=== PATIENT | female | born 1955 | race Caucasian/White ===

== ENCOUNTER 2022-06-30 13:54 | Inpatient (IN) | payer MEDICARE ==
[2022-06-30 14:42] LABS: #Monocytes 0.3 10x3/uL (0.0-1.1); %Basophils 0.2 % (0.0-2.0); %Eosinophils 0.1 % (0.0-6.0); %Monocytes 1.6 % (0.0-10.0); %Neutrophils 92.3 % (40.0-75.0); Hemoglobin 13.4 g/dL (12.0-15.5); Mean Corpuscular HGB CONC 33.5 g/dL (32.0-36.0); Mean Corpuscular Hemoglobin 29.1 pg (27.0-33.0); Platelet Count 646 10x3/uL (150-450); RBC Distribution Width 13.1 % (11.5-14.5); White Blood Cell (WBC) Count 17.4 10x3/uL (3.5-10.5)
[2022-06-30 14:55] LABS: ALT (SGPT) 23 U/L (8-55); AST (SGOT) 20 U/L (5-34); Albumin 3.7 g/dL (3.4-4.8); Alkaline Phosphatase 78 U/L (40-110); Anion Gap 23 mmol/L (10-20); BUN (Urea Nitrogen) 78 mg/dL (9.8-20.1); Bilirubin, Total 0.3 mg/dL (0.2-1.2); Calc. Creatinine Clearance 0 mL/min (70-130); Calcium 10.5 mg/dL (7.8-10.44); Carbon Dioxide 16 mmol/L (23-31); Chloride 94 mmol/L (98-107); Estimated GFR 16; Glucose 166 mg/dL (80-115); Potassium 3.2 mmol/L (3.5-5.1); Protein, Total 7.7 g/dL (5.8-8.1); Sodium 130 mmol/L (136-145)
[2022-06-30 16:09] LABS: Magnesium 2.2 mg/dL (1.6-2.6)
[2022-06-30] MEDS ORDERED: Famotidine/PF 20 mg/2ml Vial ONE (16:34)
[2022-06-30 16:58] LABS: Actual Bicarbonate (HCO3v) 17 mEq/L (22-28); Base Excess -7.7 mEq/L (-2 - +2); Calcium, Ionized (venous) 1.18 mmol/L (1.16-1.32); Chloride (VBG) 93 mmol/L (98-106); Hemoglobin (Hb) 14.3 g/dL (11.7-16.1); Potassium (VBG) 3.19 mmol/L (3.70-5.30); Puncture Site Other Site; RapidComm Collect By CBN; Sodium 126.2 mmol/L (133-146); pH (venous) 7.34 (7.32-7.43)
[2022-06-30] MEDS ORDERED: Cefepime 2 GM VIAL ONE (17:23)
[2022-06-30] MEDS ORDERED: Mag-Al Plus 1200 MG/1200 MG/120 MG/30 ML UDCUP ONE (17:23)
[2022-06-30] MEDS ORDERED: Lidocaine Viscous Sol 2% 15 ml UD Cup ONE (17:23)
[2022-06-30 17:29] LABS: Bilirubin Neg (Negative); Blood, Urine 250 (Negative); Clarity Cloudy (Clear); Glucose, Urine (Dipstick) Normal (Negative); Ketone, Urine 5 mg/dL (Negative); Leukocyte 500 (Negative); Nitrite Negative (Negative); Protein, Urine (Dipstick) 30 mg/dl (Neg-Trace); Urobilinogen Normal mg/dL (Less than 2)
[2022-06-30 17:38] LABS: RBC/HPF Greater than 50 HPF (0-3); WBC/HPF Greater than 50 HPF (0-3)
[2022-06-30 17:39] LABS: Bacteria/HPF 4+ HPF (None Seen)
[2022-06-30] MEDS ORDERED: HumaLOG 300 UNITS/3 ML VIAL SC PRN ×2 (18:31)
[2022-06-30] MEDS ORDERED: Dextrose 50% Abboject 50 ML SYRINGE SLOW IVP PRN (18:31)
[2022-06-30] MEDS ORDERED: Dextrose 5% in Water 1,000 ML IV PRN (18:31)
[2022-06-30] MEDS ORDERED: Ondansetron PF 4 MG/2 ML Vial IVP PRN (18:37)
[2022-06-30] MEDS ORDERED: Senokot S 8.6-50 MG TAB PO PRN (18:37)
[2022-06-30] MEDS ORDERED: Ondansetron ODT 4 MG TAB PO PRN (18:37)
[2022-06-30] MEDS ORDERED: Vancomycin 1.5 GRAM/300 ML BAG 1.5 GM in Premix Bag 1 BAG IVPB SCH (19:00)
[2022-06-30] MEDS ORDERED: Potassium Chloride 20 MEQ TAB PO SCH (20:45)
[2022-06-30 22:24] VITALS: BMI 22.8
[2022-06-30] MEDS ORDERED: Sodium Bicarbonate 150 MEQ in Sodium Chloride 0.45% 1,000 ML IV ONE (23:00)
[2022-06-30] MEDS ORDERED: Vancomycin HCl 1 GM in Sodium Chloride 0.9% 250 ML 250 ML IVPB SCH (23:00)
[2022-06-30] MEDS: Sodium Chloride 0.9% 1,000 ML IV SCH (23:01)
[2022-06-30] MEDS: Tacrolimus 0.5 MG CAP PO SCH (23:28)
[2022-06-30] MEDS: Mycophenolate ER 180 MG TAB PO SCH (23:29)
[2022-06-30] MEDS: Heparin 5,000 UNITS/ML VIAL SC SCH (23:41)
[2022-07-01 05:24] LABS: #Monocytes 0.6 10x3/uL (0.0-1.1); %Basophils 0.1 % (0.0-2.0); %Lymphocytes 7.5 % (18.0-47.0); %Monocytes 4.5 % (0.0-10.0); %Neutrophils 86.4 % (40.0-75.0); Anion Gap 22 mmol/L (10-20); BUN (Urea Nitrogen) 77 mg/dL (9.8-20.1); Calc. Creatinine Clearance 15 mL/min (70-130); Calcium 9.2 mg/dL (7.8-10.44); Carbon Dioxide 15 mmol/L (23-31); Chloride 98 mmol/L (98-107); Estimated GFR 17; Glucose 203 mg/dL (80-115); Hemoglobin 11.4 g/dL (12.0-15.5); Mean Corpuscular HGB CONC 33.8 g/dL (32.0-36.0); Mean Corpuscular Hemoglobin 29.3 pg (27.0-33.0); Mean Corpuscular Volume 86.6 fl (81.6-98.3); Platelet Count 415 10x3/uL (150-450); Potassium 4.5 mmol/L (3.5-5.1); RBC Distribution Width 13.2 % (11.5-14.5); Red Blood Cell (RBC) Count 3.89 10x6/uL (3.90-5.03); Sodium 130 mmol/L (136-145); White Blood Cell (WBC) Count 13.9 10x3/uL (3.5-10.5)
[2022-07-01] MEDS: Levothyroxine Sodium 50 MCG TAB PO SCH (06:55)
[2022-07-01] MEDS ORDERED: Vancomycin DOSE BY LEVEL IVPB PRN (07:26)
[2022-07-01] MEDS: Aspirin Chewable 81 MG TAB PO SCH (10:51)
[2022-07-01] MEDS: predniSONE 5 MG TAB PO SCH (10:51)
[2022-07-01] MEDS: Heparin 5,000 UNITS/ML VIAL SC SCH ×2 (10:52→22:12)
[2022-07-01] MEDS: Tacrolimus 0.5 MG CAP PO SCH ×2 (10:52→22:10)
[2022-07-01] MEDS: Mycophenolate ER 180 MG TAB PO SCH ×2 (10:52→22:11)
[2022-07-01] MEDS: Atorvastatin Calcium 20 MG TAB PO SCH (10:53)
[2022-07-01] MEDS: Sodium Chloride 0.9% 1,000 ML IV SCH (14:20)
[2022-07-01] MEDS: Cefepime 1 GM in Sodium Chloride 0.9% 100 ML IVPB SCH (17:11)
[2022-07-01] MEDS ORDERED: Alendronate Sodium 70 mg Tablet PO SCH (17:15)
[2022-07-01] MEDS: Famotidine 20 MG TAB PO SCH (22:11)
[2022-07-01 23:00] LABS: Vancomycin, Random Less than 1.1 ug/mL (See Comment)
[2022-07-02] MEDS: NIFEdipine XL 30 MG TAB PO SCH ×3 (04:02→21:11)
[2022-07-02] MEDS: Levothyroxine Sodium 50 MCG TAB PO SCH (05:02)
[2022-07-02] MEDS: Sodium Chloride 0.9% 1,000 ML IV SCH ×3 (05:02→17:09)
[2022-07-02 06:15] LABS: #Monocytes 0.4 10x3/uL (0.0-1.1); #Neutrophils 6.4 10x3/uL (1.5-8.4); %Basophils 0.1 % (0.0-2.0); %Eosinophils 0.1 % (0.0-6.0); %Lymphocytes 12.2 % (18.0-47.0); %Monocytes 4.8 % (0.0-10.0); %Neutrophils 81.9 % (40.0-75.0); Hemoglobin 10.1 g/dL (12.0-15.5); Mean Corpuscular HGB CONC 33.6 g/dL (32.0-36.0); Mean Corpuscular Hemoglobin 29.3 pg (27.0-33.0); Mean Corpuscular Volume 87.2 fl (81.6-98.3); Platelet Count 312 10x3/uL (150-450); RBC Distribution Width 13.3 % (11.5-14.5); Red Blood Cell (RBC) Count 3.45 10x6/uL (3.90-5.03); White Blood Cell (WBC) Count 7.8 10x3/uL (3.5-10.5)
[2022-07-02 06:29] LABS: Anion Gap 15 mmol/L (10-20); BUN (Urea Nitrogen) 57 mg/dL (9.8-20.1); Calc. Creatinine Clearance 20 mL/min (70-130); Calcium 8.7 mg/dL (7.8-10.44); Carbon Dioxide 21 mmol/L (23-31); Chloride 102 mmol/L (98-107); Estimated GFR 25; Glucose 153 mg/dL (80-115); Potassium 3.9 mmol/L (3.5-5.1); Sodium 134 mmol/L (136-145)
[2022-07-02] MEDS ORDERED: Non-Formulary Medication 1 EACH (Cranberry [Cranberry] 500 MG Capsule) PO SCH (09:00)
[2022-07-02] MEDS: Tacrolimus 0.5 MG CAP PO SCH ×2 (09:53→21:10)
[2022-07-02] MEDS: Aspirin Chewable 81 MG TAB PO SCH (09:53)
[2022-07-02] MEDS: Clopidogrel Bisulfate 75 MG TAB PO SCH (09:53)
[2022-07-02] MEDS: Atorvastatin Calcium 20 MG TAB PO SCH (09:54)
[2022-07-02] MEDS: Mycophenolate ER 180 MG TAB PO SCH ×2 (09:54→21:10)
[2022-07-02] MEDS: Cholecalciferol 1,000 UNITS (25 MCG) TAB PO SCH (09:54)
[2022-07-02] MEDS: predniSONE 5 MG TAB PO SCH (09:54)
[2022-07-02] MEDS: Heparin 5,000 UNITS/ML VIAL SC SCH ×2 (09:54→21:41)
[2022-07-02] MEDS: Escitalopram Oxalate 10 mg Tablet PO SCH (09:55)
[2022-07-02] MEDS: Acetaminophen 325 MG TAB PO PRN ×2 (11:40→19:56)
[2022-07-02] MEDS: Cefepime 1 GM in Sodium Chloride 0.9% 100 ML IVPB SCH (17:08)
[2022-07-02] MEDS: Famotidine 20 MG TAB PO SCH (21:11)
[2022-07-02] MEDS: HYDROcodone/Acetaminophen 5/325 mg Tablet PO PRN (23:40)
[2022-07-03] MEDS: Sodium Chloride 0.9% 1,000 ML IV SCH ×2 (04:25→12:58)
[2022-07-03 06:07] LABS: #Monocytes 0.4 10x3/uL (0.0-1.1); #Neutrophils 5.3 10x3/uL (1.5-8.4); %Basophils 0.2 % (0.0-2.0); %Eosinophils 0.3 % (0.0-6.0); %Lymphocytes 13.7 % (18.0-47.0); %Monocytes 5.3 % (0.0-10.0); %Neutrophils 79.4 % (40.0-75.0); Mean Corpuscular HGB CONC 33.7 g/dL (32.0-36.0); Mean Corpuscular Hemoglobin 29.9 pg (27.0-33.0); Mean Corpuscular Volume 88.7 fl (81.6-98.3); Mean Platelet Volume 10.2 fl (7.4-10.4); Platelet Count 301 10x3/uL (150-450); RBC Distribution Width 13.1 % (11.5-14.5); Red Blood Cell (RBC) Count 3.35 10x6/uL (3.90-5.03); White Blood Cell (WBC) Count 6.7 10x3/uL (3.5-10.5)
[2022-07-03 06:21] LABS: ALT (SGPT) 13 U/L (8-55); AST (SGOT) 16 U/L (5-34); Albumin 2.8 g/dL (3.4-4.8); Alkaline Phosphatase 56 U/L (40-110); Anion Gap 12 mmol/L (10-20); BUN (Urea Nitrogen) 38 mg/dL (9.8-20.1); Bilirubin, Total 0.3 mg/dL (0.2-1.2); Calc. Creatinine Clearance 32 mL/min (70-130); Calcium 8.3 mg/dL (7.8-10.44); Carbon Dioxide 19 mmol/L (23-31); Chloride 105 mmol/L (98-107); Estimated GFR 42; Globulin 2.6 g/dL (2.4-3.5); Glucose 225 mg/dL (80-115); Potassium 3.4 mmol/L (3.5-5.1); Protein, Total 5.4 g/dL (5.8-8.1); Sodium 133 mmol/L (136-145)
[2022-07-03] MEDS: Levothyroxine Sodium 50 MCG TAB PO SCH (06:38)
[2022-07-03] MEDS: HYDROcodone/Acetaminophen 5/325 mg Tablet PO PRN (09:43)
[2022-07-03] MEDS: Cholecalciferol 1,000 UNITS (25 MCG) TAB PO SCH ×2 (09:44→09:46)
[2022-07-03] MEDS: Tacrolimus 0.5 MG CAP PO SCH (09:45)
[2022-07-03] MEDS: Escitalopram Oxalate 10 mg Tablet PO SCH (09:45)
[2022-07-03] MEDS: Aspirin Chewable 81 MG TAB PO SCH (09:45)
[2022-07-03] MEDS: NIFEdipine XL 30 MG TAB PO SCH (09:47)
[2022-07-03] MEDS: Clopidogrel Bisulfate 75 MG TAB PO SCH (09:47)
[2022-07-03] MEDS: Atorvastatin Calcium 20 MG TAB PO SCH (09:47)
[2022-07-03] MEDS: Heparin 5,000 UNITS/ML VIAL SC SCH (12:25)
[2022-07-03] MEDS: predniSONE 5 MG TAB PO SCH (12:43)
[2022-07-03] MEDS: Mycophenolate ER 180 MG TAB PO SCH (12:44)
[2022-07-03 15:57] VITALS: BP 130/62; TEMP 98.2
== END 2022-07-03 15:00 | disposition home or self-care (01) | DRG 698 ==
LOC: CSHERS 13:54 → CSHTELE 17:46
PROVIDERS: ADMIT Internal Medicine; ATTEND Hospitalist
DX: T86.19 Other complication of kidney transplant (principal); A41.9 Sepsis, unspecified organism; N17.9 Acute kidney failure, unspecified; E87.1 Hypo-osmolality and hyponatremia; E87.20 Acidosis, unspecified; N10 Acute pyelonephritis; N30.80 Other cystitis without hematuria; Z94.0 Kidney transplant status; D75.839 Thrombocytosis, unspecified; E87.6 Hypokalemia; E11.9 Type 2 diabetes mellitus without complications; I10 Essential (primary) hypertension; F41.9 Anxiety disorder, unspecified; E78.5 Hyperlipidemia, unspecified; E03.9 Hypothyroidism, unspecified; Y83.8 Other surgical procedures as the cause of abnormal reaction of the patient, or of later complication, without mention of misadventure at the time of the procedure; Z79.82 Long term (current) use of aspirin; Z79.899 Other long term (current) drug therapy; Z79.890 Hormone replacement therapy; Z79.84 Long term (current) use of oral hypoglycemic drugs; Z79.52 Long term (current) use of systemic steroids; Z79.02 Long term (current) use of antithrombotics/antiplatelets; Z90.49 Acquired absence of other specified parts of digestive tract; Z98.84 Bariatric surgery status; Z82.49 Family history of ischemic heart disease and other diseases of the circulatory system
CPT/HCPCS: 36415; 36416; 71045; 74176; 80048; 80053; 80197; 80202; 81003; 81015; 82805; 83605; 83735; 85025; 87040; 87077; 87086; 87186; 93005; 94760; 96374; 96375; 97139; J0692; J1644; J3370; J3490; J7050; J7507; J7512; J7518; S0028

== ENCOUNTER 2022-07-27 08:16 | Outpatient (CLI) | payer MEDICARE | END 2022-07-27 08:17 | disposition home or self-care (01) | LOC: CSHWCC 08:16 | PROVIDERS: ATTEND Nurse Practitioner Family | DX: E11.621 Type 2 diabetes mellitus with foot ulcer (principal); L97.523 Non-pressure chronic ulcer of other part of left foot with necrosis of muscle; L97.429 Non-pressure chronic ulcer of left heel and midfoot with unspecified severity | CPT/HCPCS: 97139; G0463; 99204 ==

== ENCOUNTER 2022-07-30 11:10 | Outpatient (CLI) | payer MEDICARE | END 2022-07-30 11:11 | disposition home or self-care (01) | LOC: CSHWCC 11:10 | PROVIDERS: ATTEND Nurse Practitioner Family | DX: E11.621 Type 2 diabetes mellitus with foot ulcer (principal); L97.429 Non-pressure chronic ulcer of left heel and midfoot with unspecified severity | CPT/HCPCS: 93923 ==

== ENCOUNTER 2022-08-24 10:31 | Emergency (ER) | payer MEDICARE ==
[2022-08-24 11:28] LABS: #Monocytes 0.5 10x3/uL (0.0-1.1); #Neutrophils 7.6 10x3/uL (1.5-8.4); %Basophils 0.3 % (0.0-2.0); %Eosinophils 0.3 % (0.0-6.0); %Neutrophils 86.2 % (40.0-75.0); Hemoglobin 10.4 g/dL (12.0-15.5); Mean Corpuscular HGB CONC 31.2 g/dL (32.0-36.0); Mean Corpuscular Volume 92.8 fl (81.6-98.3); Mean Platelet Volume 10.3 fl (7.4-10.4); Platelet Count 315 10x3/uL (150-450); RBC Distribution Width 14.6 % (11.5-14.5); Red Blood Cell (RBC) Count 3.59 10x6/uL (3.90-5.03); White Blood Cell (WBC) Count 8.9 10x3/uL (3.5-10.5)
[2022-08-24 11:44] LABS: ALT (SGPT) 16 U/L (8-55); AST (SGOT) 24 U/L (5-34); Albumin 3.4 g/dL (3.4-4.8); Alkaline Phosphatase 131 U/L (40-110); Anion Gap 14 mmol/L (10-20); BUN (Urea Nitrogen) 15 mg/dL (9.8-20.1); Bilirubin, Total 0.4 mg/dL (0.2-1.2); Calc. Creatinine Clearance 0 mL/min (70-130); Calcium 9.9 mg/dL (7.8-10.44); Carbon Dioxide 25 mmol/L (23-31); Chloride 100 mmol/L (98-107); Estimated GFR 57; Globulin 3.1 g/dL (2.4-3.5); Glucose 286 mg/dL (80-115); Potassium 3.2 mmol/L (3.5-5.1); Protein, Total 6.5 g/dL (5.8-8.1); Sodium 136 mmol/L (136-145)
[2022-08-24] MEDS ORDERED: Vancomycin 1 GM VIAL ONE (14:08)
[2022-08-24] MEDS ORDERED: Cefepime 2 GM VIAL ONE (14:09)
[2022-08-24] MEDS ORDERED: HYDROcodone/Acetaminophen 10/325 mg Tablet ONE (19:50)
[2022-08-24 21:02] LABS: Bilirubin Neg (Negative); Blood, Urine 10 (Negative); Clarity Clear (Clear); Glucose, Urine (Dipstick) 250 mg/dL (Negative); Ketone, Urine Negative (Negative); Leukocyte 100 (Negative); Nitrite Negative (Negative); Protein, Urine (Dipstick) 100 mg/dl (Neg-Trace); Specific Gravity, Urine 1.015 (1.005-1.030); Urobilinogen Normal mg/dL (Less than 2)
[2022-08-24 21:15] LABS: Bacteria/HPF 1+ HPF (None Seen); RBC/HPF 0-3 HPF (0-3); Squamous Epithelial 0-3 HPF (0-3)
[2022-08-24 21:30] LABS: SARS-CoV-2 NAA Rapid Test Not Detected (NotDetected)
== END 2022-08-24 21:33 | disposition short-term general hospital (02) ==
LOC: CSHERS 10:31
DX: A48.0 Gas gangrene (principal); R30.0 Dysuria; M86.8X7 Other osteomyelitis, ankle and foot; E11.9 Type 2 diabetes mellitus without complications; Z20.822 Contact with and (suspected) exposure to COVID-19; Z79.899 Other long term (current) drug therapy
CPT/HCPCS: 73630; 80053; 83605; 85025; 87040; 87070; 87086; 87205; 96365; 96366; 96368; 99284; U0002; 36415; 81003; 81015; J0692; J3370

== ENCOUNTER 2022-12-16 08:16 | Outpatient (CLI) | payer MEDICARE | END 2022-12-16 08:17 | disposition home or self-care (01) | LOC: CSHWCC 08:16 | PROVIDERS: ATTEND Nurse Practitioner Family | DX: T87.89 Other complications of amputation stump (principal); T86.821 Skin graft (allograft) (autograft) failure; Z89.512 Acquired absence of left leg below knee | CPT/HCPCS: 11043; 11046; 97139; G0463; 99212 ==

== ENCOUNTER 2022-12-30 14:46 | Outpatient (CLI) | payer MEDICARE | END 2022-12-30 14:47 | disposition home or self-care (01) | LOC: CSHWCC 14:46 | PROVIDERS: ATTEND Nurse Practitioner Family | DX: T87.89 Other complications of amputation stump (principal) | CPT/HCPCS: 11043; 11046 ==

== ENCOUNTER 2023-01-11 | Inpatient (IN) | payer MEDICARE ==
[2023-01-11] MEDS ORDERED: Ondansetron PF 4 MG/2 ML Vial ONE (01:02)
[2023-01-11] MEDS ORDERED: Morphine 4 MG/ML VIAL ONE (01:02)
[2023-01-11 01:12] LABS: #Monocytes 0.9 10x3/uL (0.0-1.1); #Neutrophils 11.4 10x3/uL (1.5-8.4); %Basophils 0.2 % (0.0-2.0); %Lymphocytes 3.5 % (18.0-47.0); %Monocytes 7.2 % (0.0-10.0); %Neutrophils 88.7 % (40.0-75.0); Hematocrit 37.1 % (34.9-44.5); Mean Corpuscular HGB CONC 32.3 g/dL (32.0-36.0); Mean Corpuscular Hemoglobin 30.8 pg (27.0-33.0); Mean Corpuscular Volume 95.1 fl (81.6-98.3); Mean Platelet Volume 10.8 fl (7.4-10.4); Platelet Count 202 10x3/uL (150-450); RBC Distribution Width 13.3 % (11.5-14.5); White Blood Cell (WBC) Count 12.9 10x3/uL (3.5-10.5)
[2023-01-11 01:17] LABS: Bilirubin Neg (Negative); Blood, Urine 50 (Negative); Clarity Cloudy (Clear); Glucose, Urine (Dipstick) 250 mg/dL (Negative); Ketone, Urine 50 mg/dL (Negative); Leukocyte 500 (Negative); Nitrite Negative (Negative); Protein, Urine (Dipstick) 100 mg/dl (Neg-Trace); Urobilinogen Normal mg/dL (Less than 2)
[2023-01-11 01:25] LABS: ALT (SGPT) 8 U/L (8-55); AST (SGOT) 11 U/L (5-34); Albumin 3.7 g/dL (3.4-4.8); Alkaline Phosphatase 74 U/L (40-110); Anion Gap 20 mmol/L (10-20); BUN (Urea Nitrogen) 22 mg/dL (9.8-20.1); Bilirubin, Total 0.4 mg/dL (0.2-1.2); Calc. Creatinine Clearance 0 mL/min (70-130); Calcium 10.6 mg/dL (7.8-10.44); Carbon Dioxide 21 mmol/L (23-31); Chloride 101 mmol/L (98-107); Estimated GFR 60; Globulin 3.3 g/dL (2.4-3.5); Glucose 280 mg/dL (80-115); Potassium 3.2 mmol/L (3.5-5.1); Sodium 139 mmol/L (136-145)
[2023-01-11 01:36] LABS: Bacteria/HPF 3+ HPF (None Seen); CAUTI Indications for Culture Dysuria,urgency,freq; RBC/HPF 0-3 HPF (0-3); Squamous Epithelial 0-3 HPF (0-3); WBC/HPF Greater than 50 HPF (0-3)
[2023-01-11 01:38] LABS: Urine Culture Reflex Yes Yes
[2023-01-11 01:47] LABS: Lipase Less than 4 U/L (8-78)
[2023-01-11] MEDS ORDERED: cefTRIAXone (ROCEPHIN) 1 GM VIAL ONE (02:25)
[2023-01-11] MEDS ORDERED: Potassium Chloride 20 MEQ TAB ONE (02:25)
[2023-01-11 02:42] LABS: Magnesium 1.9 mg/dL (1.6-2.6)
[2023-01-11] MEDS ORDERED: Promethazine 25 MG TAB ONE (02:57)
[2023-01-11] MEDS ORDERED: HYDROmorphone 0.5 MG/0.5 ML SYRINGE ONE (02:57)
[2023-01-11] MEDS ORDERED: Vancomycin 1 GM VIAL ONE (05:20)
[2023-01-11] MEDS ORDERED: Acetaminophen 325 MG TAB PO PRN (05:39)
[2023-01-11] MEDS ORDERED: Ondansetron PF 4 MG/2 ML Vial IVP PRN (05:39)
[2023-01-11] MEDS ORDERED: Dextrose 5% in Water 1,000 ML IV PRN (05:39)
[2023-01-11] MEDS ORDERED: Guaifenesin DM 100-10/5 ML UDCUP PO PRN (05:39)
[2023-01-11] MEDS ORDERED: Glucagon 1 MG/ML KIT IM PRN (05:39)
[2023-01-11] MEDS ORDERED: Dextrose 50% Abboject 50 ML SYRINGE SLOW IVP PRN (05:39)
[2023-01-11] MEDS ORDERED: Senokot S 8.6-50 MG TAB PO PRN (05:39)
[2023-01-11] MEDS ORDERED: Calcium Carbonate 500 MG ChewTAB PO PRN (05:39)
[2023-01-11] MEDS ORDERED: Lactated Ringer's 1,000 ML IV SCH (05:45)
[2023-01-11] MEDS ORDERED: Tacrolimus 0.5 MG CAP PO SCH (09:00)
[2023-01-11] MEDS ORDERED: Cefepime 2 GM in Sodium Chloride 0.9% 100 ML IVPB SCH (09:00)
[2023-01-11] MEDS ORDERED: predniSONE 5 MG TAB PO SCH (09:00)
[2023-01-11] MEDS ORDERED: Tacrolimus 1 MG CAP PO SCH (09:00)
[2023-01-11] MEDS ORDERED: NIFEdipine XL 30 MG TAB PO SCH (09:00)
[2023-01-11] MEDS ORDERED: Mycophenolate DR 180 MG TAB PO SCH (10:00)
[2023-01-11] MEDS ORDERED: Levothyroxine Sodium 50 MCG TAB PO SCH (10:00)
[2023-01-11] MEDS ORDERED: NIFEdipine XL 30 MG TAB ONE (10:37)
[2023-01-11] MEDS ORDERED: Cefepime 2 GM VIAL ONE (10:38)
[2023-01-11] MEDS: Terbinafine 250 MG TAB PO SCH (10:48)
[2023-01-11] MEDS: Escitalopram Oxalate 10 mg Tablet PO SCH (10:52)
[2023-01-11] MEDS: Polyethylene Glycol 3350 17 GM Packet PO SCH (11:05)
[2023-01-11] MEDS: Cefepime 1 GM in Sodium Chloride 0.9% 100 ML IVPB SCH ×2 (11:05→22:18)
[2023-01-11 14:22] VITALS: BMI 20.6
[2023-01-11] MEDS: Gabapentin 300 MG CAP PO SCH ×2 (15:44→20:49)
[2023-01-11] MEDS: Mycophenolate DR 180 MG TAB PO SCH (15:44)
[2023-01-11] MEDS: NIFEdipine XL 30 MG TAB PO SCH (20:49)
[2023-01-11] MEDS: Atorvastatin Calcium 20 MG TAB PO SCH (20:50)
[2023-01-11] MEDS: Tacrolimus 0.5 MG CAP PO SCH (20:53)
[2023-01-11] MEDS: HumaLOG 300 UNITS/3 ML VIAL SC PRN (20:55)
[2023-01-11] MEDS ORDERED: Vancomycin 1 GM in Premix Bag 1 BAG IVPB SCH (21:00)
[2023-01-11] MEDS: HYDROcodone/Acetaminophen 5/325 mg Tablet PO PRN (22:23)
[2023-01-12 04:26] LABS: #Monocytes 1.5 10x3/uL (0.0-1.1); %Basophils 0.2 % (0.0-2.0); %Eosinophils 0.4 % (0.0-6.0); %Lymphocytes 9.5 % (18.0-47.0); %Monocytes 15.3 % (0.0-10.0); %Neutrophils 74.2 % (40.0-75.0); Hemoglobin 10.1 g/dL (12.0-15.5); Mean Corpuscular HGB CONC 31.6 g/dL (32.0-36.0); Mean Corpuscular Hemoglobin 30.3 pg (27.0-33.0); Mean Corpuscular Volume 96.1 fl (81.6-98.3); Mean Platelet Volume 10.4 fl (7.4-10.4); Platelet Count 206 10x3/uL (150-450); RBC Distribution Width 13.4 % (11.5-14.5); Red Blood Cell (RBC) Count 3.33 10x6/uL (3.90-5.03); White Blood Cell (WBC) Count 9.5 10x3/uL (3.5-10.5)
[2023-01-12 04:29] LABS: Anion Gap 12 mmol/L (10-20); BUN (Urea Nitrogen) 20 mg/dL (9.8-20.1); Calc. Creatinine Clearance 50 mL/min (70-130); Calcium 9.2 mg/dL (7.8-10.44); Carbon Dioxide 22 mmol/L (23-31); Chloride 107 mmol/L (98-107); Estimated GFR 82; Glucose 78 mg/dL (80-115); Magnesium 1.8 mg/dL (1.6-2.6); Potassium 3.3 mmol/L (3.5-5.1); Sodium 138 mmol/L (136-145)
[2023-01-12] MEDS: Vancomycin HCl 500 MG in Sodium Chloride 0.9% 100 ML IVPB SCH (05:26)
[2023-01-12] MEDS: Levothyroxine Sodium 50 MCG TAB PO SCH (05:28)
[2023-01-12] MEDS ORDERED: Magnesium 2 GM/50 ML(in water) 2 GM in Premix Bag 1 BAG IVPB SCH (08:00)
[2023-01-12] MEDS ORDERED: Potassium Chloride 10 MEQ in Premix Bag 1 BAG IVPB SCH (08:00)
[2023-01-12] MEDS: Cefepime 1 GM in Sodium Chloride 0.9% 100 ML IVPB SCH ×2 (10:08→21:51)
[2023-01-12] MEDS: NIFEdipine XL 30 MG TAB PO SCH ×2 (10:16→21:49)
[2023-01-12] MEDS: Gabapentin 300 MG CAP PO SCH ×3 (10:16→21:49)
[2023-01-12] MEDS: Escitalopram Oxalate 10 mg Tablet PO SCH (10:18)
[2023-01-12] MEDS: Polyethylene Glycol 3350 17 GM Packet PO SCH (10:19)
[2023-01-12] MEDS: Furosemide 20 MG TAB PO SCH (10:20)
[2023-01-12] MEDS: Tacrolimus 0.5 MG CAP PO SCH ×2 (10:22→21:50)
[2023-01-12] MEDS: Terbinafine 250 MG TAB PO SCH (10:23)
[2023-01-12] MEDS: Mycophenolate DR 180 MG TAB PO SCH ×2 (10:30→15:35)
[2023-01-12] MEDS: predniSONE 5 MG TAB PO SCH (10:30)
[2023-01-12] MEDS: HYDROcodone/Acetaminophen 5/325 mg Tablet PO PRN ×2 (11:42→21:58)
[2023-01-12 13:30] LABS: Hemoglobin A1c 5.9 % (4.0-6.0)
[2023-01-12] MEDS: Atorvastatin Calcium 20 MG TAB PO SCH (21:49)
[2023-01-12] MEDS: HumaLOG 300 UNITS/3 ML VIAL SC PRN (21:52)
[2023-01-13] MEDS: Levothyroxine Sodium 50 MCG TAB PO SCH (05:45)
[2023-01-13 06:13] LABS: Vancomycin, Trough 11.1 ug/mL
[2023-01-13] MEDS: Vancomycin HCl 500 MG in Sodium Chloride 0.9% 100 ML IVPB SCH (06:20)
[2023-01-13] MEDS: NIFEdipine XL 30 MG TAB PO SCH ×2 (08:13→22:34)
[2023-01-13] MEDS: Mycophenolate DR 180 MG TAB PO SCH ×2 (08:13→16:32)
[2023-01-13] MEDS: Terbinafine 250 MG TAB PO SCH (08:13)
[2023-01-13] MEDS: Gabapentin 300 MG CAP PO SCH ×3 (08:13→22:33)
[2023-01-13] MEDS: Furosemide 20 MG TAB PO SCH (08:13)
[2023-01-13] MEDS: Tacrolimus 0.5 MG CAP PO SCH ×2 (08:14→22:33)
[2023-01-13] MEDS: Escitalopram Oxalate 10 mg Tablet PO SCH (08:14)
[2023-01-13] MEDS: predniSONE 5 MG TAB PO SCH (08:14)
[2023-01-13] MEDS: Polyethylene Glycol 3350 17 GM Packet PO SCH (08:18)
[2023-01-13 08:36] LABS: Anion Gap 16 mmol/L (10-20); BUN (Urea Nitrogen) 17 mg/dL (9.8-20.1); Calc. Creatinine Clearance 48 mL/min (70-130); Calcium 9.8 mg/dL (7.8-10.44); Carbon Dioxide 22 mmol/L (23-31); Chloride 104 mmol/L (98-107); Estimated GFR 79; Glucose 103 mg/dL (80-115); Magnesium 2.1 mg/dL (1.6-2.6); Potassium 3.2 mmol/L (3.5-5.1); Sodium 139 mmol/L (136-145)
[2023-01-13] MEDS ORDERED: Potassium Chloride 20 MEQ TAB PO SCH (09:30)
[2023-01-13] MEDS: Cefepime 1 GM in Sodium Chloride 0.9% 100 ML IVPB SCH (10:59)
[2023-01-13] MEDS: HYDROcodone/Acetaminophen 5/325 mg Tablet PO PRN (11:05)
[2023-01-13] MEDS: HumaLOG 300 UNITS/3 ML VIAL SC PRN (18:35)
[2023-01-13] MEDS ORDERED: Piperacillin/Tazobactam 3.375 GM in Sodium Chloride 0.9% 100 ML IVPB SCH (22:15)
[2023-01-13] MEDS: Atorvastatin Calcium 20 MG TAB PO SCH (22:34)
[2023-01-14] MEDS ORDERED: Piperacillin/Tazobactam 3.375 GM in Sodium Chloride 0.9% 100 ML IVPB SCH (02:00)
[2023-01-14] MEDS: Levothyroxine Sodium 50 MCG TAB PO SCH (05:08)
[2023-01-14] MEDS: Mycophenolate DR 180 MG TAB PO SCH (06:42)
[2023-01-14 06:50] LABS: White Blood Cell (WBC) Count 6.1 10x3/uL (3.5-10.5)
[2023-01-14 06:51] LABS: %Basophils 0.5 % (0.0-2.0); %Eosinophils 0.7 % (0.0-6.0); %Lymphocytes 26.7 % (18.0-47.0); %Monocytes 11.1 % (0.0-10.0); %Neutrophils 60.7 % (40.0-75.0); Hemoglobin 11.6 g/dL (12.0-15.5); Mean Corpuscular HGB CONC 32.2 g/dL (32.0-36.0); Mean Corpuscular Hemoglobin 30.5 pg (27.0-33.0); Mean Corpuscular Volume 94.7 fl (81.6-98.3); Mean Platelet Volume 10.8 fl (7.4-10.4); Platelet Count 244 10x3/uL (130-400); RBC Distribution Width 46.1 % (11.5-14.5)
[2023-01-14 06:52] LABS: #Monocytes 0.7 10x3/uL (0.0-1.1); #Neutrophils 3.7 10x3/uL (1.5-8.4)
[2023-01-14 06:58] LABS: Anion Gap 13 mmol/L (10-20); BUN (Urea Nitrogen) 14 mg/dL (9.8-20.1); Calc. Creatinine Clearance 47 mL/min (70-130); Calcium 9.4 mg/dL (7.8-10.44); Carbon Dioxide 25 mmol/L (23-31); Chloride 106 mmol/L (98-107); Estimated GFR 76; Glucose 107 mg/dL (80-115); Potassium 3.7 mmol/L (3.5-5.1); Sodium 140 mmol/L (136-145)
[2023-01-14] MEDS: Escitalopram Oxalate 10 mg Tablet PO SCH (08:23)
[2023-01-14] MEDS: Gabapentin 300 MG CAP PO SCH (08:23)
[2023-01-14] MEDS: Tacrolimus 0.5 MG CAP PO SCH (08:24)
[2023-01-14] MEDS: predniSONE 5 MG TAB PO SCH (08:24)
[2023-01-14] MEDS: Furosemide 20 MG TAB PO SCH (08:24)
[2023-01-14] MEDS: Terbinafine 250 MG TAB PO SCH (08:24)
[2023-01-14] MEDS: Polyethylene Glycol 3350 17 GM Packet PO SCH (08:25)
[2023-01-14] MEDS: NIFEdipine XL 30 MG TAB PO SCH (08:25)
[2023-01-14 08:39] VITALS: TEMP 98.3
[2023-01-14] MEDS ORDERED: Cefdinir 300 MG CAP PO SCH (09:00)
[2023-01-14] MEDS ORDERED: Nitrofurantoin Monohyd/M-Cryst 100 MG CAP PO SCH (09:00)
[2023-01-14 12:24] VITALS: BP 142/68
== END 2023-01-14 13:52 | disposition home or self-care (01) | DRG 698 ==
LOC: CSHERS → SUATTDRO → CSHERHOLD 05:39 → CSHTELE 13:59
PROVIDERS: ADMIT Student in an Organized Health Care Education/Training Program; ATTEND Emergency Medicine
DX: T86.13 Kidney transplant infection (principal); A41.9 Sepsis, unspecified organism; N10 Acute pyelonephritis; N30.01 Acute cystitis with hematuria; E87.20 Acidosis, unspecified; K51.20 Ulcerative (chronic) proctitis without complications; E87.6 Hypokalemia; E11.9 Type 2 diabetes mellitus without complications; E78.5 Hyperlipidemia, unspecified; I10 Essential (primary) hypertension; E83.52 Hypercalcemia; F41.9 Anxiety disorder, unspecified; F14.10 Cocaine abuse, uncomplicated; N19 Unspecified kidney failure; Z79.4 Long term (current) use of insulin; Z89.512 Acquired absence of left leg below knee; Z79.899 Other long term (current) drug therapy; Z98.890 Other specified postprocedural states; Z79.82 Long term (current) use of aspirin; Z79.84 Long term (current) use of oral hypoglycemic drugs; Z90.49 Acquired absence of other specified parts of digestive tract; Z82.49 Family history of ischemic heart disease and other diseases of the circulatory system
CPT/HCPCS: 36415; 36416; 74177; 80048; 80053; 80202; 81001; 83036; 83690; 83735; 85025; 87040; 87077; 87086; 87186; 97139; J0692; J0696; J1170; J1650; J1815; J2270; J2405; J2543; J3370; J3475; J3480; J3490; J7120; J7507; J7512; J7518; Q0169

== ENCOUNTER 2023-03-09 15:17 | Outpatient (CLI) | payer MEDICARE | END 2023-03-09 15:18 | disposition home or self-care (01) | LOC: CSHWCC 15:17 | PROVIDERS: ATTEND Preventive Medicine Undersea and Hyperbaric Medicine | DX: T87.89 Other complications of amputation stump (principal) | CPT/HCPCS: 97602 ==

== ENCOUNTER 2023-04-01 09:17 | Outpatient (CLI) | payer MEDICARE | END 2023-04-01 09:18 | disposition home or self-care (01) | LOC: CSHWCC 09:17 | PROVIDERS: ATTEND Physician Assistant | DX: L97.111 Non-pressure chronic ulcer of right thigh limited to breakdown of skin (principal) | CPT/HCPCS: 97597 ==

== ENCOUNTER 2023-07-02 08:59 | Outpatient (CLI) | payer MEDICARE | END 2023-07-02 09:00 | disposition home or self-care (01) | LOC: CSHWCC 08:59 | PROVIDERS: ATTEND Nurse Practitioner Family | DX: E11.621 Type 2 diabetes mellitus with foot ulcer (principal); L97.514 Non-pressure chronic ulcer of other part of right foot with necrosis of bone; E11.52 Type 2 diabetes mellitus with diabetic peripheral angiopathy with gangrene; E11.59 Type 2 diabetes mellitus with other circulatory complications; E11.22 Type 2 diabetes mellitus with diabetic chronic kidney disease; N18.6 End stage renal disease ==

== ENCOUNTER 2023-08-19 07:17 | Emergency (ER) | payer MEDICARE ==
[2023-08-19 08:32] LABS: #Basophils 0.04 10x3/uL (0.0-0.2); #Eosinphils 0.16 10x3/uL (0.0-0.5); #Monocytes 0.86 10x3/uL (0.0-1.1); #Neutrophils 7.28 10x3/uL (1.5-8.4); %Basophils 0.4 % (0.0-2.0); %Eosinophils 1.6 % (0.0-6.0); %Lymphocytes 14.6 % (18.0-47.0); %Monocytes 8.8 % (0.0-10.0); %Neutrophils 74.3 % (40.0-75.0); Hematocrit 34.6 % (34.9-44.5); Hemoglobin 10.7 g/dL (12.0-15.5); Mean Corpuscular HGB CONC 30.9 g/dL (32.0-36.0); Mean Corpuscular Hemoglobin 29.7 pg (27.0-33.0); Mean Corpuscular Volume 96.1 fl (81.6-98.3); Mean Platelet Volume 10.2 fl (7.4-10.4); Platelet Count 317 10x3/uL (150-450); RBC Distribution Width 14.2 % (11.5-14.5); White Blood Cell (WBC) Count 9.8 10x3/uL (3.5-10.5)
[2023-08-19 08:45] LABS: ALT (SGPT) 14 U/L (8-55); AST (SGOT) 18 U/L (5-34); Alkaline Phosphatase 100 U/L (40-110); Anion Gap 12 mmol/L (10-20); BUN (Urea Nitrogen) 20 mg/dL (9.8-20.1); Bilirubin, Total 0.2 mg/dL (0.2-1.2); Calc. Creatinine Clearance 0 mL/min (70-130); Calcium 9.8 mg/dL (7.8-10.44); Carbon Dioxide 25 mmol/L (23-31); Chloride 106 mmol/L (98-107); Estimated GFR 58; Globulin 4.8 g/dL (2.4-3.5); Glucose 126 mg/dL (80-115); Potassium 4.3 mmol/L (3.5-5.1); Protein, Total 7.8 g/dL (5.8-8.1); Sodium 139 mmol/L (136-145)
== END 2023-08-19 08:49 | disposition home or self-care (01) ==
LOC: CSHERS 07:17
DX: M79.604 Pain in right leg (principal); E11.9 Type 2 diabetes mellitus without complications
CPT/HCPCS: 36415; 80053; 83605; 85025; 87040; 99283

== ENCOUNTER 2023-09-22 11:15 | Outpatient (CLI) | payer MEDICARE | END 2023-09-22 11:16 | disposition home or self-care (01) | LOC: CSHMAMMO 11:15 | PROVIDERS: ATTEND Family Medicine | DX: Z12.31 Encounter for screening mammogram for malignant neoplasm of breast (principal) | CPT/HCPCS: 77063; 77067 ==

== ENCOUNTER 2023-09-30 10:31 | Outpatient (CLI) | payer MEDICARE | END 2023-09-30 10:32 | disposition home or self-care (01) | LOC: CSHWCC 10:31 | PROVIDERS: ATTEND Nurse Practitioner Family | DX: T81.31XD Disruption of external operation (surgical) wound, not elsewhere classified, subsequent encounter (principal); L97.215 Non-pressure chronic ulcer of right calf with muscle involvement without evidence of necrosis; N18.6 End stage renal disease; I73.9 Peripheral vascular disease, unspecified; Z89.511 Acquired absence of right leg below knee; Z89.512 Acquired absence of left leg below knee | CPT/HCPCS: 11042 ==

== ENCOUNTER 2023-10-07 15:49 | Outpatient (CLI) | payer MEDICARE | END 2023-10-07 15:50 | disposition home or self-care (01) | LOC: CSHWCC 15:49 | PROVIDERS: ATTEND Nurse Practitioner Family | DX: T81.31XD Disruption of external operation (surgical) wound, not elsewhere classified, subsequent encounter (principal); L97.215 Non-pressure chronic ulcer of right calf with muscle involvement without evidence of necrosis; I73.9 Peripheral vascular disease, unspecified; N18.6 End stage renal disease; Z89.511 Acquired absence of right leg below knee; Z89.512 Acquired absence of left leg below knee | CPT/HCPCS: 11042 ==

== ENCOUNTER 2024-07-27 10:33 | Emergency (ER) | payer MEDICARE, OTHER ==
[2024-07-27 11:19] LABS: #Basophils Less than 0.03 10x3/uL (0.0-0.2); #Eosinophils 0.05 10x3/uL (0.0-0.5); #Neutrophils 14.07 10x3/uL (1.5-8.4); %Basophils 0.1 % (0.0-2.0); %Eosinophils 0.3 % (0.0-6.0); %Lymphocytes 3.2 % (18.0-47.0); %Monocytes 4.5 % (0.0-10.0); %Neutrophils 91.4 % (40.0-75.0); Hematocrit 31.7 % (34.9-44.5); Hemoglobin 9.3 g/dL (12.0-15.5); Mean Corpuscular HGB CONC 29.3 g/dL (32.0-36.0); Mean Corpuscular Hemoglobin 27.4 pg (27.0-33.0); Mean Corpuscular Volume 93.5 fL (81.6-98.3); Mean Platelet Volume 10.3 fL (7.4-10.4); Platelet Count 344 10x3/uL (150-450); RBC Distribution Width 14.4 % (11.5-14.5); Red Blood Cell (RBC) Count 3.39 10x6/uL (3.90-5.03); White Blood Cell (WBC) Count 15.42 10x3/uL (3.5-10.5)
[2024-07-27 11:35] LABS: ALT (SGPT) 20 U/L (Less than 34); AST (SGOT) 18 U/L (11-34); Albumin 2.1 g/dL (3.1-4.5); Alkaline Phosphatase 137 U/L (40-110); Anion Gap 13 mmol/L (10-20); BUN (Urea Nitrogen) 26 mg/dL (9.8-20.1); Bilirubin, Total 0.3 mg/dL (0.3-1.2); Calc. Creatinine Clearance 0 mL/min (70-130); Calcium 8.3 mg/dL (7.8-10.44); Carbon Dioxide 19 mmol/L (23-31); Chloride 105 mmol/L (98-107); Estimated GFR 35; Glucose 241 mg/dL (80-115); Lipase 4 U/L (8-78); Potassium 4.4 mmol/L (3.5-5.1); Protein, Total 6.1 g/dL (5.8-8.1); Sodium 133 mmol/L (136-145)
[2024-07-27 11:38] LABS: Troponin I 0.016 ng/mL (< 0.028)
[2024-07-27] MEDS ORDERED: Vancomycin 1 GM VIAL ONE (12:48)
[2024-07-27] MEDS ORDERED: cefTRIAXone (ROCEPHIN) 2 GM VIAL ONE (12:48)
[2024-07-27 13:52] LABS: Bilirubin Neg (Negative); Blood, Urine 10 (Negative); Glucose, Urine (Dipstick) 100 mg/dL (Negative); Ketone, Urine 5 mg/dL (Negative); Leukocyte 100 (Negative); Nitrite Negative (Negative); Protein, Urine (Dipstick) 500 mg/dl (Neg-Trace); Urobilinogen Normal mg/dL (Less than 2)
[2024-07-27 14:15] LABS: Clarity Hazy (Clear)
[2024-07-27 14:16] LABS: Bacteria/HPF 1+ HPF (None Seen); CAUTI Indications for Culture Pelvic or flank pain
[2024-07-27 14:17] LABS: Urine Culture Reflex Yes Yes
== END 2024-07-27 16:51 | disposition short-term general hospital (02) ==
LOC: CSHERS 10:33
DX: A41.9 Sepsis, unspecified organism (principal); T86.13 Kidney transplant infection; N15.1 Renal and perinephric abscess; E11.9 Type 2 diabetes mellitus without complications
CPT/HCPCS: 74176; 80053; 81001; 83605; 83690; 84484; 85025; 87040; 87077; 87086; 87186; 87426; 93005; 96374; 96375; 99285; J0696; J3370; 36415